=== PATIENT | male | born 1985 | race Two or more races ===

== ENCOUNTER 2019-12-14 10:40 | Emergency (ER) | payer SELFPAY ==
[2019-12-14 11:05] VITALS: BP 144/88; PULSE 70; RESP 16; TEMP 36.6; O2SAT 99
--- NOTE | 2019-12-14 11:13 | ED.WOUNDLAC ---
HPI - Wound/Laceration General Chief Complaint: Wound/Laceration Stated Complaint: injury top of head Time Seen by Provider: 12/14/19 11:13 Source: patient and RN notes reviewed History of Present Illness HPI narrative: Patient is a 34-year-old male that presents the urgent care with complaints of a laceration to the top of the head. Patient states that he bent over and cut the top of his head on a 10 please of metal. Patient denies any loss of consciousness or trauma. 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 Patient is not up-to-date on his tetanus shot. No other acute complaints. No other acute injuries. Patient aware of the plan of care. Related Data Home Medications Medication Instructions Recorded Confirmed No Home Medications 12/14/19 12/14/19 Allergies Allergy/AdvReac Type Severity Reaction Status Date / Time No Known Allergies Allergy Verified 12/14/19 11:04 Review of Systems Review of Systems: Narrative: CONSTITUTIONAL: Denies fever, chills, or sweats. EYES: Denies visual changes, redness, or discharge. ENT: Denies rhinorrhea, congestion, sore throat, or otalgia. CARDIOVASCULAR: Denies chest pain, palpitations, or edema. RESPIRATORY: Denies cough or dyspnea. GASTROINTESTINAL: Denies abdominal pain, nausea, vomiting, or diarrhea. GENITOURINARY: Denies dysuria or hematuria. SKIN: Reports of a laceration to the head MUSCULOSKELETAL: Denies back pain, joint pain, or myalgia. NEUROLOGIC: Denies headache, numbness, or weakness. All other systems reviewed are negative, except as documented in HPI. [facility] Social History Social History Gender identity (if verbalized by the patient): Male Comments At the time of my signature, I reviewed and agree with the nursing past medical, surgical, social, and family history. There is no relevant family history pertinent to the patient complaint. Exam Narrative: Exam Narrative: GENERAL: This is a well-nourished, well-developed patient, in no apparent distress. HEAD: normocephalic, atraumatic. EYES: PERRL. Sclera clear/white. Vision is grossly intact. EARS: External ears normal NOSE: External nose normal with no obvious nasal discharge THROAT: Mucous membranes moist NECK: Neck supple, non-tender without lymphadenopathy, masses or thyromegaly. SKIN: 4 cm superficial laceration to the right frontal lobe NEURO: awake, alert, and oriented to person, place and time. There were no obvious focal neurologic abnormalities. EXTREMITIES: No clubbing, cyanosis, or edema. Course Vital Signs Vital signs: Vital Signs Temperature 97.9 F 12/14/19 11:05 Pulse Rate 70 12/14/19 11:05 Respiratory Rate 16 12/14/19 11:05 Blood Pressure 144/88 H 12/14/19 11:05 Pulse Oximetry 99 12/14/19 11:05 Temperature 97.9 F 12/14/19 11:05 Pulse Rate 70 12/14/19 11:05 Respiratory Rate 16 12/14/19 11:05 Blood Pressure 144/88 H 12/14/19 11:05 Pulse Oximetry 99 12/14/19 11:05 Reviewed?patient is informed that they may have pre-hypertension or hypertension based on a blood pressure reading in the department. I recommend the patient call the primary care provider listed on their discharge instructions or a physician of their choice this week to arrange follow-up for further evaluation of possible pre-hypertension or hypertension. Procedures Laceration Laceration 1: Site: scalp Side (If applicable): right Size (cm): 4 Description: linear ====== Skin Level ====== Skin layer closed with: steri strips ====== Subcutaneous Layer ====== ====== Muscle Layer ====== ====== Tendon Layer ====== Dressin cm non-depth superficial laceration noted to the right frontal lobe. Steri-Strips placed after cleansing with [employer] and normal saline. Patient tolerated well. MDM - Wound/Laceration MDM Narrative Medical decision making na
[2019-12-14] MEDS: TETANUS,DIPHTHERIA,AC PERTUSSIS ADULT (0.5 ML) BOOSTRIX IM (11:22)
== END 2019-12-14 11:43 | disposition home or self-care (01) ==
PROVIDERS: Emergency Provider Nurse Practitioner Family
DX: S01.01XA Laceration without foreign body of scalp, initial encounter (principal); Z23 Encounter for immunization; R03.0 Elevated blood-pressure reading, without diagnosis of hypertension; W26.8XXA Contact with other sharp object(s), not elsewhere classified, initial encounter
CPT/HCPCS: 90471; 90715; 99202; G0463

== ENCOUNTER 2025-05-11 09:06 | Observation (INO) | payer BC, SELFPAY ==
[2025-05-11] VITALS (11 sets, daily range): BP systolic 117–137; BP diastolic 64–84; PULSE 80–91; RESP 12–18; TEMP 36.6–36.8; O2SAT 99–100; BMI 28.8
--- NOTE | ~2025-05-11 | US_ITS ---
EXAMINATION: US right upper quadrant DATE: 05/13/2025 08:58 INDICATION: Elevated liver enzymes TECHNIQUE: Multiple grayscale and Doppler ultrasound images of the abdomen were obtained. COMPARISON: None FINDINGS: The pancreatic body is normal in appearance. The pancreatic head and tail are not clearly visualized. Visualized proximal inferior vena cava is normal. Liver has normal echogenicity and contour, with a smooth surface. No liver lesion identified. No intrahepatic biliary duct dilation suspected. Portal venous flow was seen in the hepatopetal, normal direction and has normal Doppler waveform. The gallbladder is normal in appearance. Small amount of hypoechoic nonshadowing sludge layering dependently in the gallbladder. No cholelithiasis. The common bile duct measures 4-5 mm, which is normal. Sonographic Mcgraw sign was reported as negative by the groundwater programs director.Visualized portions of the right kidney de monstrates normal contour and echogenicity with no hydronephrosis. IMPRESSION: 1. Gallbladder sludge without cholelithiasis. Otherwise normal right upper quadrant ultrasound. Reviewed, dictated and finalized at location A. IMPRESSION: 1. Gallbladder sludge without cholelithiasis. Otherwise normal right upper quad rant ultrasound.
--- OUTSIDE RECORDS SUMMARY | 2025-05-11 09:34 | XMS_ITS | Clinical Summary ---
Author Organization [facility] Address [address] [place] [address] Care Team Providers Care Leather Finisher Name Role Phone Zeb Holloway MD Primary Care Provider [phone] Source Comments [facility],non-owned Affiliates and Associated Physician Practices is amultiple site organization consisting of ambulatory clinics and hospital sitesin [place], [place], [place] and [place]. This disclosure is being madepursuant to the Care Everywhere program and may not contain all information available regarding this patient. Last updated 18.[facility] Allergies No known active allergies Medications * Be aware that medications may not be up to date on this document. Alwaysverify current medications with the patient. No known medications Active Problems Problem Noted Date Diagnosed Date Overweight 11/04/2020 Immunizations Immunization Administration Dates Next Due Covid Pfizer primary monovalent 12+ yr 0.3mL Pur ple cap 12/12/2020 Family History Medical History Relation Name Comments None Known Father Diabetes - Type 2 Mother Relation Name Status Comments Father Alive Mother Alive Social History Tobacco Use Types Packs/Day Years Used Date Smoking Tobacco: Never Smokeless Tobacco: Never Alcohol Use Standard Drinks/Week Comments Never 0 (1 standard drink = 0.6 oz pur e alcohol) AUDIT-C Answer Date Recorded Q1: How often do you have a drink containing alc ohol? 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 Gender Identity Not on file Sexual Orientation Not on file Last Filed Vital Signs Vital Sign Reading Time Taken Comments Blood Pressure 116/64 11/04/2020 2:12 PM CDT Pulse 53 11/04/2020 2:12 PM CDT Temperature 36 C (96.8 F) 11/04/2020 2:12 PM CDT Respiratory Rate - - Oxygen Saturation 97% 11/04/2020 2:12 PM CDT Inhaled Oxygen Concentration - - Weight 86.2 kg (190 lb) 11/04/2020 2:12 PM CDT Height 175.3 cm (5' 9) 11/04/2020 2:12 PM CDT Body Mass Index 28.06 11/04/2020 2:12 PM CDT Plan of Treatment Health Maintenance Due Date Last Done Comments DTAP/TDAP/TD VACCINES (1 - Tdap) 2005 HEPATITIS B VACCINE (1 of 3 - 19+ 3-dose series) 2005 HPV VACCINE (1 - 3-dose SCDM series) 2013 DEPRESSION SCREENING 08/12/2024 COVID-19 VACCINE (3 - 2024-2 6 season) 2025 01/02/2021, 12/12/2020 INFLUENZA VACCINE (#1) 2025 ZOSTER VACCINE (1 of 2) 01/27/2036 HEPATITIS C SCREENING Completed 11/04/2020 HIV SCREENING Completed 11/04/2020 HIB VACCINE Aged Out No longer eligi ble based on patient's age to complete this topic MENINGOCOCCAL (Group B) VACCINE SHARED DECISION-MAKING Aged Out No longer eligible based on patient's age to complete this topic MENINGOCOCCAL GROUPS A/C/Y/W VACCINE Aged Out No longer eligible b ased on patient's age to complete this topic PNEUMOCOCCAL VACCINE Aged Out No long er eligible based on patient's age to complete this topic Procedures Procedure Name Priority Date/Time Associated Diagnosis Comments HEPATITIS C ANTIBODY W RFLX PCR Routine 11/04/2020 3:19 PM CDT Testicular pain, left Routine screening for STI (sexually transmitted infection) Encounter for HCV screening test for low risk patient HIV-1 HIV-2 ANTIBODY + HIV P24 AG PANEL Routine 11/04/2020 3:19 PM CDT Testicular pain, left Routine screening for STI (sexually transmitted infection) Encounter for screening for HIV from Last 3 Months or Most Recently Relevant to Health Maintenance Results * HEPATITIS C ANTIBODY W RFLX PCR (11/04/2020 3:19 PM CDT) Pathologist [facility] Hepatitis C Antibody <0.1 0.0 - 0.9 s/co ratio [facility] ACCOUNT BILL Blood BLOOD SPECIMEN / Unknown 11/04/2020 3:19 PM CDT 11/04/2020 Narrative Resulting Agency Comment Lab Testing performed at: [facility] [address] [facility] [id number] [place] Zeb Holloway MD LAB - CHEMISTRY ORDERABLES F inal Result Performing Organization Address City/[facility] de Phone Number [facility] ACCOUNT BILL [address] [place] [address] * HIV-1 HIV-2 ANTIBODY + HIV P24 AG PANEL (11/04/2020 3:19 PM CDT) Pathologist [facility] HIV Screen 4th Generation w Reflex Non Reactive Non Reactive [facility] ACCOUNT BILL Blood BLOOD SPECIMEN / Unknown 11/04/2020 3:19 PM CDT 11/04/2020 Narrative Resulting Agency Comment Lab Testing performed at: [facility] [facility] [address] [facility] [facility] [phone] [place] Zeb Holloway MD LAB - CHEMISTRY ORDERABLES F inal Result Performing Organization Address City/[facility]/ZIP Co de Phone Number [facility] ACCOUNT BILL [address] [place] [address] from Last 3 Months or Most Recently Relevant to Health Maintenance Insurance [facility] Care Teams Leather Finisher Relationship Specialty Start Date End Date Zeb Holloway MD [address] [place] [address] PCP - General Family Medicine 11/04/20
[2025-05-11 09:35] LABS: Hematocrit 22.9 % (42.0-52.0); Immature Granulocyte Percent A 0.6 % (0-0.5); Lymphocytes Absolute Auto 1.80 K/mm3 (0.9-3.2); Mean Corpuscular HGB Conc 24.0 g/dl (32-36); Mean Corpuscular Hemoglobin 14.2 pg (26-34); Mean Corpuscular Volume 59.3 fl (80-100); Nucleated Red Blood Cells Absolute Auto 0.000 K/mm3 (0.0-0.012); Nucleated Red Blood Cells Perc 0.0 % (0.0-0.2); Platelet Count Result 527 k/mm3 (150-375); Red Blood Count 3.86 M/mm3 (4.6-6.20); White Blood Count 5.4 K/mm3 (4.5-10.0)
--- NOTE | 2025-05-11 09:39 | ED_ITS ---
HPI - Recheck/Abnormal Lab/Rx General Chief Complaint: Recheck/Abnormal Lab/Rx <Emely Smith APRN - Last Filed: 05/11/25 12:49> Stated Complaint: low hemoglobin <Emely Smith APRN - Last Filed: 05/11/25 12:49> Time Seen by Provider: 05/11/25 09:11 <Emely Smith APRN - Last Filed: 05/11/25 12:49> History of Present Illness HPI narrative: Patient is a 40-year-old male who presents to the ER after his primary care provider referred him due to low hemoglobin. He reports he went to see his doctor last week because his skin was yellow. Patient reports his doctor ordered some blood work. His doctor called in this morning and advised him to go into the ER because some of his blood work results were low. Patient denies any recent fevers, chest pain, back pain, swollen lymph nodes, urinary symptoms, or swollen extremities. He reports he had asthma but the symptoms have resolved. Patient denies any other relevant medical history. <Emely Smtih APRN - Last Filed: 05/11/25 12:49> Related Data Home Medications: Home Medications ?Medication ?Instructions ?Recorded ?Confirmed ?Last Taken ?Type albuterol 90 mcg/actuation aerosol 90 mcg inhalation . Q4HR PRN 05/11/25 05/11/25 Unknown History inhaler wheezing/difficulty breathin g multivitamin (Daily Multi-Vitamin 1 tablet PO DAILY 05/11/25 05/10/25 History tablet) <Emely Smith APRN - Last Filed: 05/11/25 12:49> Allergies/Adverse Reactions: Allergies Allergy/AdvReac Type Severity Reaction Status Date / Time aspirin AdvReac Severe Difficulty Verified 05/11/25 13:02 Breathing Cats Allergy Intermediate Rash Uncoded 05/10/25 08:55 <Emely Smith APRN - Last Filed: 05/11/25 12:49> Review of Systems 2 Review of Systems: All systems reviewed & are unremarkable except as noted in HPI and below <Emely Smith APRN - Last Filed: 05/11/25 12:49> [facility] Past Medical History Medical History: Medical History (Updated 05/11/25 @ 15:26 by Raghavendra Butler MD) Pre-syncope Thrombocytosis <Emely Smith APRN - Last Filed: 05/11/25 12:49> Social History Social History: Social History Smoking status: Never smoker Alcohol intake: never Substance use: never Do You Feel Safe in your Home?: Yes Lack of Transportation: No Lack of Food: Never True Current Housing: I Have Housing Concerned About Future Housing: No Difficulty Paying Gas/Electric Bills: No Difficulty Paying for Meds: No Currently Unemployed: No Education: Decline to Answer Difficulty w/ Childcare or Family Care: No Gender identity (if verbalized by the patient): Male Spiritual care concerns: No <Emely Smith APRN - Last Filed: 05/11/25 12:49> Exam 2 Narrative: GENERAL: Well appearing, well-nourished, non-toxic, in no acute distress. HEAD: Normocephalic, atraumatic. PERRLA- non ichteric NECK: Supple. No adenopathy, no masses. RESPIRATORY: Airway patent, respirations nonlabored. Clear to auscultation bilaterally, no rales, rhonchi, wheezing. CARDIOVASCULAR: Regular rate and rhythm without murmurs, rubs, or gallops. Peripheral pulses 2+ and equal bilaterally. ABDOMINAL: Soft, nontender, nondistended, no hepatosplenomegaly. Normoactive BS. MUSCULOSKELETAL: Moves all extremities. Strength/ROM intact without gross deformities. SKIN: Warm, dry, pallor. No rashes. NEURO: A&O X3. Speech clear. Cranial nerves II-XII intact. No ataxic movements. PSYCHIATRIC: Appropriate mood and affect. Normal interaction. GI/: no palpable hemorrhoids, negative hemoccult <Emely Smith APRN - Last Filed: 05/11/25 12:49> Course DIRECTOR LEARNING/PA Physician Supervision This visit was performed by both a physician and an APC. I performed all aspects of the MDM as documented. <Jonas Barnes MD - Last Filed: 05/11/25 17:35> Vital Signs Vital signs: Vital Signs Temperature 98.1 F 05/11/25 09:12 Pulse Rate 85 05/11/25 09:12 Respiratory Rate 14 05/11/25 09:12 Blood Pressure 134/84 05/11/25 09:12 Pulse Oximetry 100 05/11/25 09:12 Oxygen Delivery Room Air 05/11/25 09:12 Temperature 98 F 05/11/25 14:55 Pulse Rate 80 05/11/25 14:55 Respiratory Rate 16 05/11/25 14:55 Blood Pressure 124/65 05/11/25 14:55 Pulse Oximetry 100 05/11/25 14:55 Oxygen Delivery Room Air 05/11/25 14:06 <Emely Smith, LEAD DATABASE ADMINISTRATOR - Last Filed: 05/11/25 12:49> Vital Signs Temperature 98.1 F 05/11/25 09:12 Pulse Rate 85 05/11/25 09:12 Respiratory Rate 14 05/11/25 09:12 Blood Pressure 134/84 05/11/25 09:12 Pulse Oximetry 100 05/11/25 09:12 Oxygen Delivery Room Air 05/11/25 09:12 Temperature 98 F 05/11/25 14:55 Pulse Rate 80 05/11/25 14:55 Respiratory Rate 16 05/11/25 14:55 Blood Pressure 124/65 05/11/25 14:55 Pulse Oximetry 100 05/11/25 14:55 Oxygen Delivery Room Air 05/11/25 14:06 <Jonas Barnes MD - Last Filed: 05/11/25 17:35> MDM - Recheck/Abnormal Lab/Rx MDM Narrative Medical decision making narrative: Patient is a 40-year-old male who presents to the ER after his primary care provider referred him due to low hemoglobin. He reports he went to see his doctor last week because his skin was yellow. Patient reports his doctor ordered some blood work. His doctor called in this morning and advised him to go into the ER because some of his blood work results were low. Patient denies any recent fevers, chest pain, back pain, swollen lymph nodes, urinary symptoms, or swollen extremities. He reports he had asthma but the symptoms have resolved. Patient denies any other relevant medical history. Labs Ordered: CBC, CMP, type and screen, iron TIBC, COVID/flu/RSV, UA, PTT, INR Imaging Ordered:CBC, CMP, Iron and TIBC, PTT, INR, Type and Screen, COVID/flu/RSV, UA Medications Ordered: Protonix 40 mg IV, packed red blood cells Results: Patient's Hemoccult was negative. Diagnosis: low hemoglobin Consults: 1115- Spoke with Dr. Pichardo, hospitalist, who was in agreement with plan for admission. He will be admitted to the med/surg unit. Dr. Pichardo requests GI be consulted. 1155- Spoke with GI, Dr. Carlin, who is aware of the patient and will consult on him. CRITICAL CARE ADDENDUM: Indication: low hemoglobin, requiring blood transfusion Time type: intermittent I provided a total of 55 minutes of critical care excluding separately billable procedures. This includes time w/ initial bedside evaluation, reviewing old records, review of testing done while under my care, discussion w/ the family, nurses, data power consultant and guiding the patient?s care while in the emergency department. Approximate time distribution: 15 minutes ? Initial evaluation, d/w involved parties, attempting to gather old records. 10 minutes ? Documenting medical record 10 minutes ? Review of results (EKGs, labs, imaging) 10 minutes ? Serial repeat bedside evaluation 10 minutes ? Discussing case with multiple providers Please see main chart for details. Excludes separately billable procedures. MDM: Results of imaging and lab work shared with patient and his family. It was advised patient be admitted to the hospital for further evaluation and treatment. Patient and his family verbalized understanding and are in agreement with plan. <Emely Smith, LEAD DATABASE ADMINISTRATOR - Last Filed: 05/11/25 12:49> Patient is a 40-year-old male who presents to the ER after his primary care provider referred him due to low hemoglobin. He reports he went to see his doctor last week because his skin was yellow. Patient reports his doctor ordered some blood work. His doctor called in this morning and advised him to go into the ER because some of his blood work results were low. Patient denies any recent fevers, chest pain, back pain, swollen lymph nodes, urinary symptoms, or swollen extremities. He reports he had asthma but the symptoms have resolved. Patient denies any other relevant medical history. Labs Ordered: CBC, CMP, type and screen, iron TIBC, COVID/flu/RSV, UA, PTT, INR Imaging Ordered:CBC, CMP, Iron and TIBC, PTT, INR, Type and Screen, COVID/flu/RSV, UA Medications Ordered: Protonix 40 mg IV, packed red blood cells Results: Patient's Hemoccult was negative. Diagnosis: low hemoglobin Consults: 1115- Spoke with Dr. Pichardo, hospitalist, who was in agreement with plan for admission. He will be admitted to the med/surg unit. Dr. Pichardo requests GI be consulted. 1155- Spoke with GI, Dr. Carlin, who is aware of the patient and will consult on him. CRITICAL CARE ADDENDUM: Indication: low hemoglobin, requiring blood transfusion Time type: intermittent I provided a total of 55 minutes of critical care excluding separately billable procedures. This includes time w/ initial bedside evaluation, reviewing old records, review of testing done while under my care, discussion w/ the family, nurses, data power consultant and guiding the patient?s care while in the emergency department. Approximate time distribution: 15 minutes ? Initial evaluation, d/w involved parties, attempting to gather old records. 10 minutes ? Documenting medical record 10 minutes ? Review of results (EKGs, labs, imaging) 10 minutes ? Serial repeat bedside evaluation 10 minutes ? Discussing case with multiple providers Please see main chart for details. Excludes separately billable procedures. MDM: Results of imaging and lab work shared with patient and his family. It was advised patient be admitted to the hospital for further evaluation and treatment. Patient and his family verbalized understanding and are in agreement with plan. This visit was performed by both a physician and an APC. I performed all aspects of the MDM as documented. <Jonas Barnes MD - Last Filed: 05/11/25 17:35> Differential Diagnosis Differential diagnosis: Likely other (Lower GI bleed, hemorrhoids, iron deficiency anemia) <Emely Smith APRN - Last Filed: 05/11/25 12:49> Lab Data Attestation: I reviewed the patient's lab results. <Emely Smith APRN - Last Filed: 05/11/25 12:49> Result diagrams: 05/11/25 17:18 05/11/25 09:28 <Emely Smith APRN - Last Filed: 05/11/25 12:49> Labs: Lab Results 05/11/25 05/11/25 05/11/25 Range/Units 09:28 09:52 10:55 WBC 5.4 (4.5-10.0) K/mm3 RBC 3.86 L (4.6-6.20) M/mm3 Hgb 5.5 L* (14.0-18.0) g/dL Hct 22.9 L (42.0-52.0) % MCV 59.3 L (80-100) fl MCH 14.2 L (26-34) pg MCHC 24.0 L (32-36) g/dl RDW 23.2 H (11.5-14.5) % Plt Count 527 H (150-375) k/mm3 MPV 9.4 (7.4-10.4) fl Immature Gran % (Auto) 0.6 H (0-0.5) % Neut % (Auto) 57.6 (45.5-73.1) % Lymph % (Auto) 33.3 (18.3-44.2) % Dickenson % (Auto) 4.8 (2.6-8.5) % Eos % (Auto) 3.0 (0-4.4) % Baso % (Auto) 0.7 (0.2-1.2) % Lymph # (Auto) 1.80 (0.9-3.2) K/mm3 Dickenson # (Auto) 0.3 (0.1-0.6) K/mm3 Eos # (Auto) 0.2 (0-0.3) K/mm3 Baso # (Auto) 0.0 (0.0-0.1) K/mm3 Abs Immat Gran (auto) 0.03 (0.00-0.031) K/mm3 Absolute Neuts (auto) 3.1 (1.3-6.7) K/mm3 Absolute Nucleated RBC 0.000 (0.0-0.012) K/mm3 Band Neutrophils % Not Reportable Nucleated RBC % 0.0 (0.0-0.2) % Platelet Estimate Increased (Adequate) Large Platelets Present Hypochromasia 1+ Anisocytosis 2+ Target Cells 1+ Tear Drop Cells 1+ Ovalocytes 1+ Schistocytes 1+ PT 14.1 (11.1-14.7) Seconds INR 1.1 APTT 20.1 L (22.3-36.8) Seconds Sodium 136 L (137-145) mmol/L Potassium 4.4 (3.4-5.0) mmol/L Chloride 102 (98-107) mmol/L Carbon Dioxide 24 (22-30) mmol/L Anion Gap 10 (4-12) mmol/L BUN 11 (9-20) mg/dL Creatinine 0.82 (0.7-1.3) mg/dL Estim Creat Clear Calc 111 ml/min Estimated GFR > 60 (59 - ) Glucose 106 (65-110) mg/dL Calcium 8.9 (8.4-10.2) mg/dL Iron 18 L (49-181) ug/dL TIBC 542 H (265-497) ug/dL % Saturation 3 L (20-50) % Total Bilirubin 0.5 (0.2-1.3) mg/dL AST 53 (17-59) U/L ALT 89 H (6-50) U/L Alkaline Phosphatase 89 (38-126) U/L Total Protein 8.0 (6.3-8.2) g/dL Albumin 4.3 (3.5-5.1) g/dL Urine Color Yellow (Yellow) Urine Appearance Cloudy H (Clear) Urine pH 7.0 (5.0-9.0) Ur Specific [place] 1.018 (1.001-1.035) Urine Protein Negative (Negative) mg/dL Urine Glucose (UA) Negative (Negative) mg/dL Urine Ketones Negative (Negative) mg/dL Ur Blood (Man) Negative (Negative) Urine Nitrate Negative (Negative) Urine Bilirubin Negative (Negative) Urine Urobilinogen 0.2 (<2.0) mg/dL Leukocyte Esterase Rfl Negative (Negative) JONATHAN/UL Urine RBC 0-2 (0-2) /hpf Urine WBC 0-5 (0-3) /hpf Ur Squamous Epith Cells None seen (Few) /hpf Urine Bacteria None seen /hpf Urine Casts 0-2 Influenza A (RT-PCR) Negative (Negative) Influenza B (RT-PCR) Negative (Negative) RSV (RT-PCR) Negative (Negative) SARS-CoV-2 RNA (RT-PCR) Negative (Negative) Blood Type O Positive Antibody Screen Negative Crossmatch See Detail <Emely Smith, LEAD DATABASE ADMINISTRATOR - Last Filed: 05/11/25 12:49> Lab Results 05/11/25 05/11/25 05/11/25 Range/Units 09:28 09:52 10:55 WBC 5.4 (4.5-10.0) K/mm3 RBC 3.86 L (4.6-6.20) M/mm3 Hgb 5.5 L* (14.0-18.0) g/dL Hct 22.9 L (42.0-52.0) % MCV 59.3 L (80-100) fl MCH 14.2 L (26-34) pg MCHC 24.0 L (32-36) g/dl RDW 23.2 H (11.5-14.5) % Plt Count 527 H (150-375) k/mm3 MPV 9.4 (7.4-10.4) fl Immature Gran % (Auto) 0.6 H (0-0.5) % Neut % (Auto) 57.6 (45.5-73.1) % Lymph % (Auto) 33.3 (18.3-44.2) % Dickenson % (Auto) 4.8 (2.6-8.5) % Eos % (Auto) 3.0 (0-4.4) % Baso % (Auto) 0.7 (0.2-1.2) % Lymph # (Auto) 1.80 (0.9-3.2) K/mm3 Dickenson # (Auto) 0.3 (0.1-0.6) K/mm3 Eos # (Auto) 0.2 (0-0.3) K/mm3 Baso # (Auto) 0.0 (0.0-0.1) K/mm3 Abs Immat Gran (auto) 0.03 (0.00-0.031) K/mm3 Absolute Neuts (auto) 3.1 (1.3-6.7) K/mm3 Absolute Nucleated RBC 0.000 (0.0-0.012) K/mm3 Band Neutrophils % Not Reportable Nucleated RBC % 0.0 (0.0-0.2) % Platelet Estimate Increased (Adequate) Large Platelets Present Hypochromasia 1+ Anisocytosis 2+ Target Cells 1+ Tear Drop Cells 1+ Ovalocytes 1+ Schistocytes 1+ PT 14.1 (11.1-14.7) Seconds INR 1.1 APTT 20.1 L (22.3-36.8) Seconds Sodium 136 L (137-145) mmol/L Potassium 4.4 (3.4-5.0) mmol/L Chloride 102 (98-107) mmol/L Carbon Dioxide 24 (22-30) mmol/L Anion Gap 10 (4-12) mmol/L BUN 11 (9-20) mg/dL Creatinine 0.82 (0.7-1.3) mg/dL Estim Creat Clear Calc 111 ml/min Estimated GFR > 60 (59 - ) Glucose 106 (65-110) mg/dL Calcium 8.9 (8.4-10.2) mg/dL Iron 18 L (49-181) ug/dL TIBC 542 H (265-497) ug/dL % Saturation 3 L (20-50) % Total Bilirubin 0.5 (0.2-1.3) mg/dL AST 53 (17-59) U/L ALT 89 H (6-50) U/L Alkaline Phosphatase 89 (38-126) U/L Total Protein 8.0 (6.3-8.2) g/dL Albumin 4.3 (3.5-5.1) g/dL Urine Color Yellow (Yellow) Urine Appearance Cloudy H (Clear) Urine pH 7.0 (5.0-9.0) Ur Specific [place] 1.018 (1.001-1.035) Urine Protein Negative (Negative) mg/dL Urine Glucose (UA) Negative (Negative) mg/dL Urine Ketones Negative (Negative) mg/dL Ur Blood (Man) Negative (Negative) Urine Nitrate Negative (Negative) Urine Bilirubin Negative (Negative) Urine Urobilinogen 0.2 (<2.0) mg/dL Leukocyte Esterase Rfl Negative (Negative) JONATHAN/UL Urine RBC 0-2 (0-2) /hpf Urine WBC 0-5 (0-3) /hpf Ur Squamous Epith Cells None seen (Few) /hpf Urine Bacteria None seen /hpf Urine Casts 0-2 Influenza A (RT-PCR) Negative (Negative) Influenza B (RT-PCR) Negative (Negative) RSV (RT-PCR) Negative (Negative) SARS-CoV-2 RNA (RT-PCR) Negative (Negative) Blood Type O Positive Antibody Screen Negative Crossmatch See Detail <Jonas Barnes MD - Last Filed: 05/11/25 17:35> Critical Care Time Critical Care Time Critical Care Time: Yes <Emely Smith APRN - Last Filed: 05/11/25 12:49> Total Critical Care Time: 55 <Emely Smith APRN - Last Filed: 05/11/25 12:49> Discharge Plan Discharge Clinical Impression: Hemoglobin low, Fatigue <Emely Smith APRN - Last Filed: 05/11/25 12:49> Patient Disposition: Still a Patient <Emely Smith APRN - Last Filed: 05/11/25 12:49> Condition: Stable <Emely Smith APRN - Last Filed: 05/11/25 12:49>
[2025-05-11 09:45] LABS: Alanine Aminotransferase 89 U/L (6-50); Albumin Level 4.3 g/dL (3.5-5.1); Alkaline Phosphatase 89 U/L (38-126); Anion Gap 10 mmol/L (4-12); Aspartate Amino Transferase 53 U/L (17-59); Bilirubin,Total 0.5 mg/dL (0.2-1.3); Blood Urea Nitrogen 11 mg/dL (9-20); Calcium 8.9 mg/dL (8.4-10.2); Carbon Dioxide 24 mmol/L (22-30); Chloride 102 mmol/L (98-107); Estimated CRCL calculation 111 ml/min; Estimated Glomerular Filt Rate > 60; Glucose 106 mg/dL (65-110); Potassium 4.4 mmol/L (3.4-5.0); Sodium 136 mmol/L (137-145); Total Protein 8.0 g/dL (6.3-8.2)
[2025-05-11 09:46] LABS: Hemoglobin 5.5 g/dL (14.0-18.0)
[2025-05-11 09:56] LABS: Iron 18 ug/dL (49-181)
[2025-05-11 10:06] LABS: Percent Iron Saturation 3 % (20-50)
[2025-05-11 10:13] LABS: INR 1.1; Prothrombin Time 14.1 Seconds (11.1-14.7)
[2025-05-11 10:14] LABS: Partial Thromboplastin Time 20.1 Seconds (22.3-36.8)
[2025-05-11 10:21] LABS: Anisocytosis 2+; Hypochromasia 1+; Ovalocytes 1+; Schistocytes 1+; Target Cells 1+; Tear Drop Cells 1+
--- OUTSIDE RECORDS SUMMARY | 2025-05-11 10:21 | XMS_ITS | Clinical Summary ---
Author Organization [facility] [employer] Address [address] [place] [address] Care Team Providers Care Brush Maker Name Role Phone Zeb Holloway MD Primary Care Provider [phone] Source Comments [facility],non-owned Affiliates and Associated Physician Practices is amultiple site organization consisting of ambulatory clinics and hospital sitesin [place], [place] and [place]. This disclosure is being madepursuant to the Care Everywhere program and may not contain all information available regarding this patient. Last updated 18.[facility] [employer] Allergies No known active allergies Medications * [...] on file Legal Sex Male 9:54 AM [employer] Gender Identity Not on file Sexual Orientation [...] RFLX PCR (11/04/2020 3:19 PM CDT) Pathologist [facility] Hepatitis C Antibody <0.1 0.0 - 0.9 s/co ratio [facility] ACCOUNT BILL Blood BLOOD SPECIMEN / Unknown 11/04/2020 3:19 PM CDT 11/04/2020 Narrative Resulting Agency Comment Lab Testing performed at: [facility] [address] [id number] us Zeb Holloway MD LAB - CHEMISTRY ORDERABLES F inal Result Performing Organization Address City/[facility] de Phone Number [facility] ACCOUNT BILL [address] [place] [address] * HIV-1 HIV-2 ANTIBODY + HIV P24 AG PANEL (11/04/2020 3:19 PM CDT) Pathologist [facility] HIV Screen 4th Generation w Reflex Non Reactive Non Reactive [facility] ACCOUNT BILL Blood BLOOD SPECIMEN / Unknown 11/04/2020 3:19 PM CDT 11/04/2020 Narrative Resulting Agency Comment Lab Testing performed at: [facility] [address] [id number] us Zeb Holloway MD LAB - CHEMISTRY ORDERABLES F inal Result Performing Organization Address City/[facility]/ZIP Co de Phone Number [facility] ACCOUNT BILL [address] [place] [address] from Last 3 Months or Most Recently Relevant to Health Maintenance Insurance [facility] Care Teams Brush Maker Relationship Specialty Start Date End Date Zeb Holloway MD [address] [place] [address] PCP - General Family Medicine 11/04/20
[2025-05-11 10:33] LABS: Influenza A QL RT-PCR Negative (Negative); Influenza B QL RT-PCR Negative (Negative); RSV RNA, RT-PCR Negative (Negative); SARS-CoV-2 RNA PCR Negative (Negative)
[2025-05-11 11:06] LABS: Add Urine Microscopic? YES; Appearance Urine Cloudy (Clear); Glucose Urine UA Negative (Negative); Leukocyte Esterase Ur Negative LEU/UL (Negative); Nitrate Urine Negative (Negative); Non Pathogenic Casts 0-2; Specific Grav Ur 1.018 (1.001-1.035)
[2025-05-11] MEDS: SODIUM CHLORIDE 0.9% IV 250 ML 30 ML IV CONT (11:08)
[2025-05-11] MEDS: TUBING, BLOOD SET 1 EACH XX (11:09)
[2025-05-11] MEDS: PANTOPRAZOLE SODIUM IV 40 MG VIAL IV PUSH ×2 (12:05→20:10)
[2025-05-11 12:11] LABS: Hematocrit 26.6 % (42.0-52.0); Hemoglobin 6.6 g/dL (14.0-18.0)
--- NOTE | 2025-05-11 12:22 | P.HP_ITS ---
H&P: HPI History of Present Illness Date/Time: 05/11/25 12:22 Chief Complaint: Abnormal Labs Narrative: 40-year-old patient previously healthy presents the hospital for abnormal labs. He recently went to his primary care provider are due to his skin turning yellow and discolored urine. He states that his primary care provider told to go to the emergency room due to his blood counts being low. Patient did state that he was ill about a week ago intake about 2 tabs at Tylenol. Since then the illness has resolved. Patient denies pain, nausea vomiting, fever chills, shortness of breath. Lab work in the ED shows hemoglobin of 5.6, platelets of 527, sodium 136, iron of 18 TV IC 542, 3% saturation, ALT 89, UA negative for infection, influenza A/B RSV and COVID negative. Occult stool guaiac negative. GI has been consulted. Patient was given 1 unit RBCs in the emergency room and responded appropriately hemoglobin is now 6.6. Review of Systems Review of Systems: 12 systems were reviewed and are negativ e except for as per HPI. [facility] Past Medical History Medical History (Updated 05/11/25 @ 15:26 by Raghavendra Butler MD) Pre-syncope Thrombocytosis Social History Social History Smoking status: Never smoker Alcohol intake: never Substance use: never Do You Feel Safe in your Home?: Yes Lack of Transportation: No Lack of Food: Never True Current Housing: I Have Housing Concerned About Future Housing: No Difficulty Paying Gas/Electric Bills: No Difficulty Paying for Meds: No Currently Unemployed: No Education: Decline to Answer Difficulty w/ Childcare or Family Care: No Gender identity (if verbalized by the patient): Male Spiritual care concerns: No Meds Home Medications and Allergies Home Medications ?Medication ?Instructions ?Recorded ?Confirmed ?Type albuterol 90 mcg/actuation aerosol 90 mcg inhalation . Q4HR PRN 05/11/25 05/11/25 History inhaler wheezing/difficulty breathin g multivitamin (Daily Multi-Vitamin 1 tablet PO DAILY 05/11/25 History tablet) Allergies Allergy/AdvReac Type Severity Reaction Status Date / Time aspirin AdvReac Severe Difficulty Verified 05/11/25 13:02 Breathing Cats Allergy Intermediate Rash Uncoded 05/10/25 08:55 Vital Signs Vital Signs - 24 hr 05/11/25 09:12 05/11/25 10:50 05/11/25 11:02 Temperature 98.1 F 98.0 F Pulse Rate 85 91 89 Respiratory Rate 14 18 15 Blood Pressure 134/84 131/72 117/72 Pulse Oximetry 100 100 100 Oxygen Delivery Room Air 05/11/25 11:19 05/11/25 12:03 Temperature 98.3 F 98.0 F Pulse Rate 81 81 Respiratory Rate 13 12 Blood Pressure 118/71 121/71 Pulse Oximetry 100 99 Oxygen Delivery Exam Narrative: General: well appearing, appears stated age. HEENT: normocephalic, atraumatic. Mucous membranes moist. EOMI, PERRLA, no conjunctival injection. Neck supple without JVD, lymphadenopathy, or bruit. Respiratory: clear to ascultation bilaterally. No rales/rhonic/wheezes. Cardiovascular: Regular rate and rhythm, normal S1-S2 upon ascultation. No murmurs, rubs, or clicks. PMI is nondisplaced, capillary refill less than 3 second. Abdomen: Soft, round, no pulsatile masses, nondistended and nontender. No rebound, no guarding. No CVA tenderness, no hepatosplenomegaly. Bowel sounds present to all four quadrants. No high pitch or tinkling sounds, resonant to percussion. Extremities: No cyanosis, clubbing, or edema present. Pulses are palpable 2/2. Active ROM to all four extremities. Neuro: Alert and orientated x 4. PERRLA. Cranial nerves 2-12 intact without focal deficit. Skin: Warm, dry, and intact, without rash, erythema, or lesion. Psych: pleasant, cooperative, normal speech, normal affect, no hallucinations, no dysarthia H&P: Results Labs Labs: Short CBC 05/11/25 05/11/25 Range/Units 09:28 11:54 WBC 5.4 (4.5-10.0) K/mm3 Hgb 5.5 L* 6.6 L* (14.0-18.0) g/dL Hct 22.9 L 26.6 L (42.0-52.0) % Plt Count 527 H (150-375) k/mm3 [facility] 05/11/25 09:28 Sodium 136 L Potassium 4.4 Chloride 102 Carbon Dioxide 24 BUN 11 Creatinine 0.82 Glucose 106 Calcium 8.9 Liver Function 05/11/25 Range/Units 09:28 Total Bilirubin 0.5 (0.2-1.3) mg/dL AST 53 (17-59) U/L ALT 89 H (6-50) U/L Alkaline Phosphatase 89 (38-126) U/L Albumin 4.3 (3.5-5.1) g/dL Urine 05/11/25 Range/Units 10:55 Urine Color Yellow (Yellow) Urine Appearance Cloudy H (Clear) Urine pH 7.0 (5.0-9.0) Ur Specific [place] 1.018 (1.001-1.035) Urine Protein Negative (Negative) mg/dL Urine Glucose (UA) Negative (Negative) mg/dL Assessment and Plan Assessment and plan (1) Anemia: Code(s): D64.9 - Anemia, unspecified Status: Acute Assessment and Plan: Hemoglobin on admission 5.6 GI consulted and Hematology consulted NPO midnight, okay for clear liquids now 1 unit of RBCs transfused in the emergency room, repeat hemoglobin 6.6 Second unit of RBCs ordered Had H&H q.6 Transfuse for hemoglobin less than 7 No signs of acute bleeding Ferritin, haptoglobin, B12 and folic acid pending No signs of acute bleeding Hemoglobin has responded appropriately to transfusions (2) Yellow skin: Code(s): R17 - Unspecified jaundice Status: Acute Assessment and Plan: With severe anemia and jaundice Hematology consulted Anemia workup pending Ferritin, direct Marely, haptoglobin, B12 and folic acid pending (3) Iron deficiency anemia: Code(s): D50.9 - Iron deficiency anemia, unspecified Status: Acute Assessment and Plan: Iron 18, TIBC 542, saturation 3% Total iron deficiency 2337 mg 300 mg of IV iron ordered for tonight and tomorrow (4) Elevated liver enzymes: Code(s): R74.8 - Abnormal levels of other serum enzymes Status: Acute Assessment and Plan: CMP in the morning (5) Fatigue: Code(s): R53.83 - Other fatigue Status: Acute Assessment and Plan: Likely due to acute anemia Quality VTE Prophylaxis VTE prophylaxis: mechanical ordered If No VTE Prophylaxis Answer both mechanical and pharmacologic: Reason no pharmacologic proph: medical contraindication Hospitalist MIPS Advance Care Plan I have confirmed that the patient's Advanced Care Plan is present, code status is documented, or surrogate decision maker is listed in patient medical record.: Yes Medication Reconciliation I have utilized all available resources to obtain, update and review the patients current medications (includes all prescriptions, OTC, herbals, cannabis, and nutritional supplements).: Yes
--- NOTE | 2025-05-11 12:50 | ADMGEN ---
This patient, Ny Sauceda, was admitted to [facility] S[facility] Room 315-02. Patient/family oriented to hospital policies and general routines including ID bracelet, bed and alarms, visiting hours, pain management, procedures, bathroom and other care routines, personal items, smoking policy, room service/diet, and visiting hours. Information on how to activate the Rapid Response Team has been discussed. Patient/Family are encouraged to report perceived risks to care and to ask questions if they do not understand what they are told or what they should do. 1u PRBCs tranfused in ED. Kylee notified by MAYRA, [employer]PER[employer] INTELLIGENCE CHIEF of second critical Hgb.
--- NOTE | 2025-05-11 15:23 | P.CONGI_ITS ---
Assessment and Plan Assessment and plan (1) Iron deficiency anemia: Code(s): D50.9 - Iron deficiency anemia, unspecified Status: Acute Assessment and Plan: we will proceed with egd and colonoscopy tomorrow, need to assess if pud, avm or even malignancy. He denies overt gib, never had scopes, no use of nsaid's transfuse to keep hgb>7 (2) Elevated liver enzymes: Code(s): R74.8 - Abnormal levels of other serum enzymes Status: Acute Assessment and Plan: noted elevated enzymes will get liver us (3) Thrombocytosis: Code(s): D75.839 - Thrombocytosis, unspecified Status: Acute Assessment and Plan: this is probably reactive from anemia (4) Pre-syncope: Code(s): R55 - Syncope and collapse Status: Acute Assessment and Plan: from symptomatic anemia GI Consult Note Consult date/time: 05/11/25 15:23 Reason for consult: symptomatic anemia HPI: Ny Sauceda is a 40 year old male with history of asthma and no other significant medical history, originally from [facility]. He says that last few months his noted change in color of skin, also last 2 weeks had episodes of near syncope where he would get lightheaded and feeling like passing out after changing position. He denies abdominal pain, overt gib, nausea or weight loss. Never had scopes, only time received local anesthesia when had dental work, he is not taking medications. Grandmother had colon cancer. Blood work hemoglobin of 5.6, platelets of 527, sodium 136, iron of 18 TV IC 542, 3% saturation, ALT 89, UA negative for infection, influenza A/B RSV and COVID negative. Occult stool guaiac negative. Review of Systems 2 Constitutional: Constitutional: Reports fatigue Eyes: Eyes: Denies blurry vision ENT: Reports Normal hearing present Cardiovascular: Cardiovascular: Reports lightheadedness Respiratory: Respiratory: Denies cough Gastrointestinal: Gastrointestinal: Denies melena and Denies hematochezia Genitourinary: Genitourinary: Denies dysuria Musculoskeletal: Musculoskeletal: Denies neck pain Integumentary/Breasts: Skin/Breast: Denies rash Neurologic: Denies Abnormal speech present Psychiatric: Psychiatric: Denies anxiety PMFSH Past Medical History Medical History (Updated 05/11/25 @ 15:26 by Raghavendra Butler MD) Pre-syncope Thrombocytosis Social History Social History Smoking status: Never smoker Alcohol intake: never Substance use: never Do You Feel Safe in your Home?: Yes Lack of Transportation: No Lack of Food: Never True Current Housing: I Have Housing Concerned About Future Housing: No Difficulty Paying Gas/Electric Bills: No Difficulty Paying for Meds: No Currently Unemployed: No Education: Decline to Answer Difficulty w/ Childcare or Family Care: No Gender identity (if verbalized by the patient): Male Spiritual care concerns: No Meds Home Medications and Allergies Home Medications ?Medication ?Instructions ?Recorded ?Confirmed ?Type albuterol 90 mcg/actuation aerosol 90 mcg inhalation . Q4HR PRN 05/11/25 05/11/25 History inhaler wheezing/difficulty breathin g multivitamin (Daily Multi-Vitamin 1 tablet PO DAILY 05/11/25 History tablet) Allergies Allergy/AdvReac Type Severity Reaction Status Date / Time aspirin AdvReac Severe Difficulty Verified 05/11/25 13:02 Breathing Cats Allergy Intermediate Rash Uncoded 05/10/25 08:55 Vital Signs Vital Signs - 24 hr 05/11/25 09:12 05/11/25 10:50 05/11/25 11:02 Temperature 98.1 F 98.0 F Pulse Rate 85 91 89 Respiratory Rate 14 18 15 Blood Pressure 134/84 131/72 117/72 Pulse Oximetry 100 100 100 Oxygen Delivery Room Air 05/11/25 11:19 05/11/25 12:03 05/11/25 13:40 Temperature 98.3 F 98.0 F 97.9 F Pulse Rate 81 81 80 Respiratory Rate 13 12 16 Blood Pressure 118/71 121/71 125/66 Pulse Oximetry 100 99 100 Oxygen Delivery 05/11/25 13:55 05/11/25 14:06 05/11/25 14:55 Temperature 98.2 F 98 F Pulse Rate 80 80 Respiratory Rate 16 16 Blood Pressure 126/64 124/65 Pulse Oximetry 100 100 Oxygen Delivery Room Air Exam 2 Const: General: comfortable and no acute distress HENMT: Face/Nose/Sinus: Normal nares present Eyes: General: appearance normal, both eyes and all related structures Neck: Neck: no JVD Resp: Auscultation: clear to auscultation bilaterally Cardio: Rate: regular rate Rhythm: regular rhythm GI: Inspection: non-distended GI Palp: Yes Soft to palpation and No Tenderness to palpation present (GI) Auscultation: normal bowel sounds Skin: Other: pallor Neuro: Speech: normal speech Motor exam (neuro): 5/5 motor strength present throughout Extrem: General: normal to inspection Psych: Mental Status: mental status grossly normal Results Labs 05/11/25 11:54 05/11/25 09:28 Labs: Short CBC 05/11/25 05/11/25 Range/Units 09:28 11:54 WBC 5.4 (4.5-10.0) K/mm3 Hgb 5.5 L* 6.6 L* (14.0-18.0) g/dL Hct 22.9 L 26.6 L (42.0-52.0) % Plt Count 527 H (150-375) k/mm3 BMP 05/11/25 09:28 Sodium 136 L Potassium 4.4 Chloride 102 Carbon Dioxide 24 BUN 11 Creatinine 0.82 Glucose 106 Calcium 8.9 Liver Function 05/11/25 Range/Units 09:28 Total Bilirubin 0.5 (0.2-1.3) mg/dL AST 53 (17-59) U/L ALT 89 H (6-50) U/L Alkaline Phosphatase 89 (38-126) U/L Albumin 4.3 (3.5-5.1) g/dL Urine 05/11/25 Range/Units 10:55 Urine Color Yellow (Yellow) Urine Appearance Cloudy H (Clear) Urine pH 7.0 (5.0-9.0) Ur Specific [place] 1.018 (1.001-1.035) Urine Protein Negative (Negative) mg/dL Urine Glucose (UA) Negative (Negative) mg/dL
[2025-05-11] MEDS: IRON SUCROSE COMPLEX 200 MG, IRON SUCROSE COMPLEX 100 MG in SODIUM CHLORIDE 0.9% IV 250 ML 176.67 MG IVPB (16:20)
[2025-05-11] MEDS: BISACODYL 5 MG TABLET EC 20 MG PO (17:14)
[2025-05-11 17:22] LABS: Hematocrit 28.1 % (42.0-52.0); Hemoglobin 7.6 g/dL (14.0-18.0)
[2025-05-11 18:11] LABS: Ferritin 4.82 ng/mL (17.9-464)
[2025-05-11 18:41] LABS: Vitamin B12 910.0 pg/mL (239-931)
[2025-05-11 23:29] LABS: Hematocrit 27.8 % (42.0-52.0); Hemoglobin 7.6 g/dL (14.0-18.0)
[2025-05-12] VITALS (7 sets, daily range): BP systolic 101–121; BP diastolic 60–73; PULSE 63–91; RESP 14–26; TEMP 36.4–36.9; O2SAT 97–100
[2025-05-12] MEDS: MAGNESIUM CITRATE 300 ML BTL PO (00:12)
[2025-05-12 06:47] LABS: Hematocrit 30.9 % (42.0-52.0); Hemoglobin 8.2 g/dL (14.0-18.0)
[2025-05-12] MEDS: PANTOPRAZOLE SODIUM IV 40 MG VIAL IV PUSH (07:58)
[2025-05-12] MEDS: IRON SUCROSE COMPLEX 200 MG, IRON SUCROSE COMPLEX 100 MG in SODIUM CHLORIDE 0.9% IV 250 ML 176.67 MG IVPB (08:02)
[2025-05-12] MEDS: LACTATED RINGERS 1,000 ML 150 ML IV CONT (08:50)
--- NOTE | 2025-05-12 08:52 | P.PNAN_ITS ---
Anes - Initial Pre Proc Eval Procedure: Operation Date: 05/12/25 15:00 Proposed Procedures p EGD & Diagnostic Colonoscopy - Raghavendra Butler MD Date/Time: 05/12/25 08:52 Surgeon: Gonzalo Pichardo MD Pre Op Diagnosis: low hemoglobin Patient Data Age: 40 Gender: M Height: 1.78 m Weight: 91.3 kg Last Vital Signs Temp 36.6 C 05/12/25 05:27 Pulse 77 05/12/25 05:27 Resp 14 05/12/25 05:27 BP 113/63 05/12/25 05:27 Pulse Ox 100 05/12/25 05:27 O2 Del Method Room Air 05/11/25 20:00 Allergies Allergy/AdvReac Type Severity Reaction Status Date / Time aspirin AdvReac Severe Difficulty Verified 05/12/25 08:49 Breathing Cats Allergy Intermediate Rash Uncoded 05/10/25 08:55 Home Medications ?Medication ?Instructions ?Recorded ?Confirmed ?Type albuterol 90 mcg/actuation aerosol 90 mcg inhalation . Q4HR PRN 05/11/25 05/11/25 History inhaler wheezing/difficulty breathin g multivitamin (Daily Multi-Vitamin 1 tablet PO DAILY 05/11/25 History tablet) Laboratory Tests 05/11/25 05/11/25 05/11/25 09:28 09:52 10:55 WBC 5.4 K/mm3 (4.5-10.0) RBC 3.86 L M/mm3 (4.6-6.20) Hgb 5.5 L* g/dL (14.0-18.0) Hct 22.9 L % (42.0-52.0) MCV 59.3 L fl (80-100) MCH 14.2 L pg (26-34) MCHC 24.0 L g/dl (32-36) RDW 23.2 H % (11.5-14.5) Plt Count 527 H k/mm3 (150-375) MPV 9.4 fl (7.4-10.4) Immature Gran % (Auto) 0.6 H % (0-0.5) Neut % (Auto) 57.6 % (45.5-73.1) Lymph % (Auto) 33.3 % (18.3-44.2) Hettinger % (Auto) 4.8 % (2.6-8.5) Eos % (Auto) 3.0 % (0-4.4) Baso % (Auto) 0.7 % (0.2-1.2) Lymph # (Auto) 1.80 K/mm3 (0.9-3.2) Hettinger # (Auto) 0.3 K/mm3 (0.1-0.6) Eos # (Auto) 0.2 K/mm3 (0-0.3) Baso # (Auto) 0.0 K/mm3 (0.0-0.1) Abs Immat Gran (auto) 0.03 K/mm3 (0.00-0.031) Absolute Neuts (auto) 3.1 K/mm3 (1.3-6.7) Absolute Nucleated RBC 0.000 K/mm3 (0.0-0.012) Band Neutrophils % Not Reportable Nucleated RBC % 0.0 % (0.0-0.2) Platelet Estimate Increased (Adequate) Large Platelets Present Hypochromasia 1+ Anisocytosis 2+ Target Cells 1+ Tear Drop Cells 1+ Ovalocytes 1+ Schistocytes 1+ Haptoglobin PT 14.1 Seconds (11.1-14.7) INR 1.1 APTT 20.1 L Seconds (22.3-36.8) Sodium 136 L mmol/L (137-145) Potassium 4.4 mmol/L (3.4-5.0) Chloride 102 mmol/L (98-107) Carbon Dioxide 24 mmol/L (22-30) Anion Gap 10 mmol/L (4-12) BUN 11 mg/dL (9-20) Creatinine 0.82 mg/dL (0.7-1.3) Estim Creat Clear Calc 111 ml/min Estimated GFR > 60 (59 - ) Glucose 106 mg/dL (65-110) Calcium 8.9 mg/dL (8.4-10.2) Iron 18 L ug/dL (49-181) TIBC 542 H ug/dL (265-497) % Saturation 3 L % (20-50) Ferritin Total Bilirubin 0.5 mg/dL (0.2-1.3) AST 53 U/L (17-59) ALT 89 H U/L (6-50) Alkaline Phosphatase 89 U/L (38-126) Total Protein 8.0 g/dL (6.3-8.2) Albumin 4.3 g/dL (3.5-5.1) Vitamin B12 Folate Urine Color Yellow (Yellow) Urine Appearance Cloudy H (Clear) Urine pH 7.0 (5.0-9.0) Ur Specific [place] 1.018 (1.001-1.035) Urine Protein Negative mg/dL (Negative) Urine Glucose (UA) Negative mg/dL (Negative) Urine Ketones Negative mg/dL (Negative) Ur Blood (Man) Negative (Negative) Urine Nitrate Negative (Negative) Urine Bilirubin Negative (Negative) Urine Urobilinogen 0.2 mg/dL (<2.0) Leukocyte Esterase Rfl Negative JONATHAN/UL (Negative) Urine RBC 0-2 /hpf (0-2) Urine WBC 0-5 /hpf (0-3) Ur Squamous Epith Cells None seen /hpf (Few) Urine Bacteria None seen /hpf Urine Casts 0-2 Influenza A (RT-PCR) Negative (Negative) Influenza B (RT-PCR) Negative (Negative) RSV (RT-PCR) Negative (Negative) SARS-CoV-2 RNA (RT-PCR) Negative (Negative) Blood Type O Positive Antibody Screen Negative KRISTAL, IgG Interpret KRISTAL, Poly Interpret KRISTAL, Complement Interp Crossmatch See Detail 05/11/25 05/11/25 05/11/25 11:54 17:18 23:25 WBC RBC Hgb 6.6 L* g/dL 7.6 L g/dL 7.6 L g/dL (14.0-18.0) (14.0-18.0) (14.0-18.0) Hct 26.6 L % 28.1 L % 27.8 L % (42.0-52.0) (42.0-52.0) (42.0-52.0) MCV MCH MCHC RDW Plt Count MPV Immature Gran % (Auto) Neut % (Auto) Lymph % (Auto) [place] % (Auto) Eos % (Auto) Baso % (Auto) Lymph # (Auto) [place] # (Auto) Eos # (Auto) Baso # (Auto) Abs Immat Gran (auto) Absolute Neuts (auto) Absolute Nucleated RBC Band Neutrophils % Nucleated RBC % Platelet Estimate Large Platelets Hypochromasia Anisocytosis Target Cells Tear Drop Cells Ovalocytes Schistocytes Haptoglobin Pending PT INR APTT Sodium Potassium Chloride Carbon Dioxide Anion Gap BUN Creatinine Estim Creat Clear Calc Estimated GFR Glucose Calcium Iron TIBC % Saturation Ferritin 4.82 L ng/mL (17.9-464) Total Bilirubin AST ALT Alkaline Phosphatase Total Protein Albumin Vitamin B12 910.0 pg/mL (239-931) Folate 19.7 ng/mL (2.76->20) Urine Color Urine Appearance Urine pH Ur Specific [place] Urine Protein Urine Glucose (UA) Urine Ketones Ur Blood (Man) Urine Nitrate Urine Bilirubin Urine Urobilinogen Leukocyte Esterase Rfl Urine RBC Urine WBC Ur Squamous Epith Cells Urine Bacteria Urine Casts Influenza A (RT-PCR) Influenza B (RT-PCR) RSV (RT-PCR) SARS-CoV-2 RNA (RT-PCR) Blood Type Antibody Screen KRISTAL, IgG Interpret Neg KRISTAL, Poly Interpret Negative KRISTAL, Complement Interp Not Performed Crossmatch 05/12/25 05:49 WBC RBC Hgb 8.2 L g/dL (14.0-18.0) Hct 30.9 L % (42.0-52.0) MCV MCH MCHC RDW Plt Count MPV Immature Gran % (Auto) Neut % (Auto) Lymph % (Auto) [place] % (Auto) Eos % (Auto) Baso % (Auto) Lymph # (Auto) [place] # (Auto) Eos # (Auto) Baso # (Auto) Abs Immat Gran (auto) Absolute Neuts (auto) Absolute Nucleated RBC Band Neutrophils % Nucleated RBC % Platelet Estimate Large Platelets Hypochromasia Anisocytosis Target Cells Tear Drop Cells Ovalocytes Schistocytes Haptoglobin PT INR APTT Sodium Potassium Chloride Carbon Dioxide Anion Gap BUN Creatinine Estim Creat Clear Calc Estimated GFR Glucose Calcium Iron TIBC % Saturation Ferritin Total Bilirubin AST ALT Alkaline Phosphatase Total Protein Albumin Vitamin B12 Folate Urine Color Urine Appearance Urine pH Ur Specific [place] Urine Protein Urine Glucose (UA) Urine Ketones Ur Blood (Man) Urine Nitrate Urine Bilirubin Urine Urobilinogen Leukocyte Esterase Rfl Urine RBC Urine WBC Ur Squamous Epith Cells Urine Bacteria Urine Casts Influenza A (RT-PCR) Influenza B (RT-PCR) RSV (RT-PCR) SARS-CoV-2 RNA (RT-PCR) Blood Type Antibody Screen KRISTAL, IgG Interpret KRISTAL, Poly Interpret KRISTAL, Complement Interp Crossmatch Patient hx anesthesia problems: none Family hx anesthesia problems: none Results Review: All pre-operative results and documents have been reviewed as part of the pre- operative evaluation. [facility] Past Medical History Medical History (Updated 05/12/25 @ 08:53 by Man Salas MD) Anemia Pre-syncope Thrombocytosis Social History Social History Smoking status: Never smoker Alcohol intake: never Substance use: never Do You Feel Safe in your Home?: Yes Lack of Transportation: No Lack of Food: Never True Current Housing: I Have Housing Concerned About Future Housing: No Difficulty Paying Gas/Electric Bills: No Difficulty Paying for Meds: No Currently Unemployed: No Education: Decline to Answer Difficulty w/ Childcare or Family Care: No Gender identity (if verbalized by the patient): Male Spiritual care concerns: No Anes - Eval Final PreProcedure Day of Procedure 05/12/25 08:52 Patient weight: overweight Heart: regular rate and rhythm Lungs: clear to auscultation Airway: Mallampati scale class II Neurological: alert and oriented Last oral intake: >/= 8 hours ASA classification: III Emergent: no Anesthetic plan: proceed Anesthesia type and monitoring: general GIVS and standard monitoring Results Review: All pre-operative results and documents have been reviewed as part of the pre- operative evaluation. Informed Consent: The patient's anesthetic plan and its attendant risks and benefits were discussed with the patient/family/POA. Questions were solicited and answers provided to the satisfaction of the patient/family/POA.
--- NOTE | 2025-05-12 09:32 | S_PTH ---
PATIENT: Ny Sauceda LOC: [id number] U#:[id number] AGE/SX: 40/M ROOM: 315 RE05/11/[address]: Anna Weber MD : 1985 BED: 02 DIS: 05/13/2025 SPEC #: [id number] RECD: 05/12/25 11:32 STATUS: WILL RENella #: [id number] BRITTNEY: 05/12/25 09:[address]: Raghavendra Butler DEPT: [facility] Surgical RECD BY: Bernadette Jauregui ENTERED: 05/12/25 11:33 SP TYPE: Surgical OTHR DR: MD Gonzalo Quevedo MD Mafeth A. Lim, DO Tissues: A - Small Bowel Bx B - Gastric Biopsy Procedures: Hematoxylin and Eosin Stain Gross and Microscopic Level 4
--- NOTE | 2025-05-12 09:34 | SUR.OPER ---
EGD: ended 929, COLON: started 933
--- NOTE | 2025-05-12 18:47 | P.CONONC_ITS ---
Assessment and Plan Assessment and plan (1) Iron deficiency anemia: Code(s): D50.9 - Iron deficiency anemia, unspecified Status: Acute Assessment and Plan: This is the pleasant 40-year-old [facility] male who has been in great health came into the hospital with 2 months history of tiredness and fatigue with pale skin discoloration. He denies any melena hematochezia. Denies being a vegetarian. Denies any previous stomach surgeries. Labs showed profound iron deficiency and reactive thrombocytosis secondary to iron deficiency. B12 and bilirubin was normal. Creatinine was also normal. There is no evidence of hemolytic anemia with normal bilirubin. I will check LDH. Colonoscopy came back normal. EGD showed hiatal hernia. Patient could have malabsorption of iron with hiatal hernia but severity of iron deficiency cannot be explained just by the hiatal hernia. I would recommend capsule enteroscopy for completion of GI workup. Patient has already received iron infusion and blood transfusion with improvement in hemoglobin. I have instructed him to take iron 65 mg twice a day with vitamin-C 500 mg daily. I will see him back in my office with repeat blood check. I have answered all the questions to patient's satisfaction. HPI Data of Consult Date/Time: 05/12/25 18:47 Requesting Physician: Gonzalo Pichardo MD Primary Care Provider: Robi Drummond DO Consult Narrative Narrative: Ny Sauceda is a 40 year old male originally from [facility] was been in good health other than history of presyncopal episode and thrombocytosis was sent to the hospital due to pale discoloration of the skin. According the patient he has been feeling tired and fatigued for the last 2 months duration. He denies any melena hematochezia. He denies being a vegetarian. He denies any previous stomach surgeries. On admission his hemoglobin was found to be 5.6 with platelet count of 729001. Iron saturation was 3% with serum iron of 18. Hemoccult stool was negative. Patient had colonoscopy done today that came back normal. EGD done that showed hiatal hernia without any bleeding. Patient received 2 units of packed red blood cell with improvement in hemoglobin now 8.2. Other labs showed normal creatinine of 0.8 elevated ALT of 84 and AST of 54, B12 was normal at 910. Total bilirubin was also normal at 0.5. He denies any other complaints. Review of Systems 2 Review of Systems: Twelve point review of system was reviewed [facility] Past Medical History Medical History (Updated 05/12/25 @ 09:48 by Raghavendra Butler MD) Hiatal hernia Anemia Pre-syncope Thrombocytosis Social History Social History Smoking status: Never smoker Alcohol intake: never Substance use: never Do You Feel Safe in your Home?: Yes Lack of Transportation: No Lack of Food: Never True Current Housing: I Have Housing Concerned About Future Housing: No Difficulty Paying Gas/Electric Bills: No Difficulty Paying for Meds: No Currently Unemployed: No Education: Decline to Answer Difficulty w/ Childcare or Family Care: No Gender identity (if verbalized by the patient): Male Spiritual care concerns: No Meds Home Medications and Allergies Home Medications ?Medication ?Instructions ?Recorded ?Confirmed ?Type albuterol 90 mcg/actuation aerosol 90 mcg inhalation . Q4HR PRN 05/11/25 05/11/25 History inhaler wheezing/difficulty breathin g multivitamin (Daily Multi-Vitamin 1 tablet PO DAILY 05/11/25 History tablet) Allergies Allergy/AdvReac Type Severity Reaction Status Date / Time aspirin AdvReac Severe Difficulty Verified 05/12/25 08:49 Breathing Cats Allergy Intermediate Rash Uncoded 05/10/25 08:55 Vital Signs Vital Signs - 24 hr 05/11/25 20:00 05/11/25 21:24 05/12/25 05:27 Temperature 36.7 C 36.6 C Pulse Rate 85 85 77 Respiratory Rate 16 16 14 Blood Pressure 125/71 113/63 Pulse Oximetry 99 99 100 Oxygen Delivery Room Air 05/12/25 08:51 05/12/25 09:48 05/12/25 09:58 Temperature 36.5 C Pulse Rate 84 91 81 Respiratory Rate 20 26 H 16 Blood Pressure 121/73 101/65 103/63 Pulse Oximetry 99 100 100 Oxygen Delivery Room Air Room Air Room Air 05/12/25 10:08 05/12/25 14:00 Temperature 36.4 C Pulse Rate 77 86 Respiratory Rate 21 H 18 Blood Pressure 105/60 113/62 Pulse Oximetry 100 97 Oxygen Delivery Room Air Exam 2 Narrative: Lungs are clear to auscultation bilaterally Cardiovascular regular rate rhythm no murmurs Abdomen soft nontender nondistended Extremities no edema Results Labs 05/12/25 05:49 05/11/25 09:28 Labs: Short CBC 05/11/25 05/12/25 Range/Units 23:25 05:49 Hgb 7.6 L 8.2 L (14.0-18.0) g/dL Hct 27.8 L 30.9 L (42.0-52.0) %
--- NOTE | 2025-05-13 00:18 | PC.NURSE ---
Patient notified and agreed NPO 05/13 @ 0000 for US procedure to evaluate elevated liver enzymes.
[2025-05-13 06:00] VITALS: BP 108/59; PULSE 69; RESP 14; TEMP 36.9; O2SAT 100
[2025-05-13 14:00] VITALS: BP 106/58; PULSE 86; RESP 18; TEMP 36.5; O2SAT 99
[2025-05-13 14:50] LABS: Hematocrit 29.9 % (42.0-52.0); Hemoglobin 8.1 g/dL (14.0-18.0); Immature Granulocyte Percent A 0.8 % (0-0.5); Lymphocytes Absolute Auto 2.24 K/mm3 (0.9-3.2); Mean Corpuscular HGB Conc 27.1 g/dl (32-36); Mean Corpuscular Hemoglobin 17.4 pg (26-34); Mean Corpuscular Volume 64.2 fl (80-100); Nucleated Red Blood Cells Absolute Auto 0.020 K/mm3 (0.0-0.012); Nucleated Red Blood Cells Perc 0.3 % (0.0-0.2); Platelet Count Result 523 k/mm3 (150-375); Red Blood Count 4.66 M/mm3 (4.6-6.20); White Blood Count 7.3 K/mm3 (4.5-10.0)
[2025-05-13 15:01] LABS: Alanine Aminotransferase 71 U/L (6-50); Albumin Level 4.2 g/dL (3.5-5.1); Alkaline Phosphatase 81 U/L (38-126); Anion Gap 11 mmol/L (4-12); Aspartate Amino Transferase 47 U/L (17-59); Bilirubin,Total 0.5 mg/dL (0.2-1.3); Blood Urea Nitrogen 13 mg/dL (9-20); Calcium 8.5 mg/dL (8.4-10.2); Carbon Dioxide 23 mmol/L (22-30); Chloride 103 mmol/L (98-107); Estimated CRCL calculation 90 ml/min; Estimated Glomerular Filt Rate > 60; Glucose 115 mg/dL (65-110); Potassium 4.0 mmol/L (3.4-5.0); Sodium 137 mmol/L (137-145); Total Protein 7.9 g/dL (6.3-8.2)
[2025-05-13 15:18] LABS: Hypochromasia 2+; Microcytosis 1+ (NORMAL); Polychromasia Occasional; Schistocytes None Seen; Target Cells 1+
--- NOTE | 2025-05-13 16:53 | P.DS_ITS ---
DS: Admitting Diagnosis Discharge Date 05/13/2025 Admitting Diagnosis anemia DS: Discharge Diagnosis Discharge Diagnosis (1) Anemia: Code(s): D64.9 - Anemia, unspecified Status: Acute Assessment and Plan: Hemoglobin on admission 5.6 GI consulted and Hematology consulted NPO midnight, okay for clear liquids now 1 unit of RBCs transfused in the emergency room, repeat hemoglobin 6.6 Second unit of RBCs ordered Had H&H q.6 Transfuse for hemoglobin less than 7 No signs of acute bleeding Ferritin, haptoglobin, B12 and folic acid pending No signs of acute bleeding Hemoglobin has responded appropriately to transfusions Patient will follow up with hematology as an outpatient. Patient will see his PCP in 1 week for a CBC (2) Yellow skin: Code(s): R17 - Unspecified jaundice Status: Acute Assessment and Plan: With severe anemia and jaundice Hematology consulted Anemia workup pending Ferritin, direct Marely, haptoglobin, B12 and folic acid pending (3) Iron deficiency anemia: Code(s): D50.9 - Iron deficiency anemia, unspecified Status: Acute Assessment and Plan: Iron 18, TIBC 542, saturation 3% Total iron deficiency 2337 mg 300 mg of IV iron done continue PO iron supplement (4) Elevated liver enzymes: Code(s): R74.8 - Abnormal levels of other serum enzymes Status: Acute Assessment and Plan: monitor (5) Fatigue: Code(s): R53.83 - Other fatigue Status: Acute Assessment and Plan: Likely due to acute anemia DS: Summary Hospital Course Reason for hospitalization: anemia Hospital Course: Patient was admitted due to anemia. Patient had labs drawn by his PCP that showed a hemoglobin of 5.6 and he was sent to the ER. Patient was transfused 2 units of PRBC's. Patient denies any signs bleeding. GI and Hematology were consulted. Patient had an EGD which showed a moderate sized hiatal hernia. Patient was given IV iron and will transition to PO iron on discharge. Patient;s hemoglobin improved post transfusion and remained stable. Hematology recommended for patient to follow up in their clinic after discharge. Gi recommended for patient to have capsule study done to evaluate the small bowel. Patient was discharged home. Patient will follow up with his PCP 1 week after discharge for a repeat CBC. Time Spent with Patient Time attestation: Total time spent providing and/or coordinating discharge services:35 Minutes Exam Narrative: General: well appearing, appears stated age. HEENT: normocephalic, atraumatic. Mucous membranes moist. EOMI, PERRLA, no conjunctival injection. Neck supple without JVD, lymphadenopathy, or bruit. Respiratory: clear to ascultation bilaterally. No rales/rhonic/wheezes. Cardiovascular: Regular rate and rhythm, normal S1-S2 upon ascultation. No murmurs, rubs, or clicks. PMI is nondisplaced, capillary refill less than 3 second. Abdomen: Soft, round, no pulsatile masses, nondistended and nontender. No rebound, no guarding. No CVA tenderness, no hepatosplenomegaly. Bowel sounds pr esent to all four quadrants. No high pitch or tinkling sounds, resonant to percussion. Extremities: No cyanosis, clubbing, or edema present. Pulses are palpable 2/2. Active ROM to all four extremities. Neuro: Alert and orientated x 4. PERRLA. Cranial nerves 2-12 intact without focal deficit. Skin: Warm, dry, and intact, without rash, erythema, or lesion. Psych: pleasant, cooperative, normal speech, normal affect, no hallucinations, no dysarthia DS: Data Data Completed and Pending Completed studies during hospitalization: Pending at discharge 05/12/25 09:32 Surgical [PTH] Routine Labs on day of discharge: Labs from last 24 hours 05/13/25 05/11/25 14:44 17:18 WBC 7.3 RBC 4.66 Hgb 8.1 L Hct 29.9 L MCV 64.2 L D MCH 17.4 L D MCHC 27.1 L RDW 29.6 H Plt Count 523 H MPV 9.0 Immature Gran % (Auto) 0.8 H Neut % (Auto) 57.3 Lymph % (Auto) 30.6 Hudson % (Auto) 8.5 Eos % (Auto) 1.6 Baso % (Auto) 1.2 Lymph # (Auto) 2.24 Hudson # (Auto) 0.6 Eos # (Auto) 0.1 Baso # (Auto) 0.1 Abs Immat Gran (auto) 0.06 H Absolute Neuts (auto) 4.2 Absolute Nucleated RBC 0.020 H Band Neutrophils % Not Reportable Nucleated RBC % 0.3 H Platelet Estimate Increased Polychromasia Occasional Hypochromasia 2+ Microcytosis 1+ Target Cells 1+ Schistocytes None seen Haptoglobin 146 Sodium 137 Potassium 4.0 Chloride 103 Carbon Dioxide 23 Anion Gap 11 BUN 13 Creatinine 1.00 Estim Creat Clear Calc 90 Estimated GFR > 60 Glucose 115 H Calcium 8.5 Total Bilirubin 0.5 AST 47 ALT 71 H Alkaline Phosphatase 81 Total Protein 7.9 Albumin 4.2 Discharge Plan Discharge Attending physician on discharge: Anna Weber Consulting providers: Raghavendra Butler; Jonas Barnes; Lori Judd; Haritha Quintero; Gregory Oliva; Carlos Pearson Discharging Clinician: Haritha Quintero Patient Disposition: Home Activity: as tolerated Diet: as tolerated Discharge Instructions: Please follow up with Dr. Carlin in six weeks. Please follow up with your primary care doctor within one week. If you are unable to be seen within one week, call them to obtain blood work regarding your hemoglobin. Please return to the ER if you have any worrisome symptoms like dizziness, shortness of breath, fever greater than 100.5, syncopal episodes, or increased weakness. Thank you for [facility] for your healthcare needs. Patient Instructions: Antibiotic Form Patient Language: Georgian Stand Alone Forms: General Discharge Information Follow-up/Referrals: Carlos Pearson MD [Physician, Hematology] Referral Note: call to schedule a follow up appointment in 2 weeks Robi Drummond DO [Primary Care Provider, Family Practice] Referral Note: call for an appt to be seen 1 week after discharge. Ask for a lab to be done to check your blood counts (CBC). Raghavendra Butler MD [Physician, Gastroenterology] Referral Note: call to schedule appointment for capsule endoscopy to be completed if you do not hear from the office in 1 week Discharge Medications: New ascorbic acid (vitamin C) [Vitamin C] 500 mg Tablet 500 mg PO DAILY Qty: 30 0RF ferrous sulfate 325 mg (65 mg iron) Tablet,Delayed Release (Dr/Ec) 325 mg PO BID Qty: 60 0RF Continued multivitamin [Daily Multi-Vitamin] Tablet 1 tablet PO DAILY albuterol 90 mcg/actuation aerosol 90 mcg inhalation .Q4HR PRN (Reason: wheezing/difficulty breathing) omeprazole 40 mg capsule,delayed release(DR/EC) 40 mg PO DAILY Qty: 30 2RF Discontinued amoxicillin 500 mg capsule 1,000 mg PO Q12H 14 Days Qty: 56 0RF clarithromycin 500 mg tablet 500 mg PO Q12H 14 Days Qty: 28 0RF Date of admission: 05/11/25 11:26 Primary Care Provider: Robi Drummond Admitting Provider: Kelvin Pichardo Attending physician on admission: Anna Weber Condition: Stable Quality VTE Prophylaxis VTE prophylaxis: mechanical ordered
[2025-05-13] MEDS: FERROUS SULFATE 325 MG TABLET PO (17:00)
== END 2025-05-13 18:00 | disposition home or self-care (01) ==
LOC: ANHED 11:35 → ANH3MEDSUR 15:27
PROVIDERS: Emergency Medicine; Internal Medicine Gastroenterology; Nurse Practitioner Adult Health; Nurse Practitioner Gerontology; Admitting Provider Internal Medicine; Emergency Provider Registered Nurse; PCP Family Medicine; Visit Provider General Practice
PROC: 0DJ08ZZ Inspection of Upper Intestinal Tract, Via Natural or Artificial Opening Endoscopic (ICD-10-PCS; CPT 45378; principal; 2025-05-12 15:00)
DX: D50.9 Iron deficiency anemia, unspecified (principal); D75.839 Thrombocytosis, unspecified; K44.9 Diaphragmatic hernia without obstruction or gangrene; K29.50 Unspecified chronic gastritis without bleeding; B96.81 Helicobacter pylori [H. pylori] as the cause of diseases classified elsewhere; R17 Unspecified jaundice; R74.8 Abnormal levels of other serum enzymes; R53.83 Other fatigue; Z20.822 Contact with and (suspected) exposure to COVID-19; J45.909 Unspecified asthma, uncomplicated; Z79.51 Long term (current) use of inhaled steroids; Z80.0 Family history of malignant neoplasm of digestive organs
CPT/HCPCS: 43239; 45378; 36415; 36430; 76705; 80053; 81001; 82607; 82728; 82746; 83010; 83540; 83550; 85014; 85018; 85025; 85610; 85730; 86850; 86880; 86900; 86901; 86923; 87637; 88305; 96374; 96375; 96376; 99285; A9270; G0378; J1756; J2003; J2470; J2704; J7050; J7120; P9016

== ENCOUNTER 2025-06-10 05:16 | Outpatient (CLI) | payer BC, SELFPAY ==
--- NOTE | 2025-05-31 14:08 | SUR.PREOP ---
Spoke with patient in regards to his [facility] capsule endoscopy. Instructions to be emailed to the patient. Patient to call us if he has any questions.
[2025-06-10] MEDS: SIMETHICONE ORAL SUSPENSION 20 MG/0.3 ML 30 ML BOTTLE 1.8 ML PO (06:15)
--- NOTE | 2025-06-10 06:27 | SUR.OPER ---
Patient brought to GI Lab. Instructions for patient undergoing Capsule Endoscopy reviewed with patient. Consent form signed. Sensor array applied to patient's abdomen and connected to recorded. Patient swallowed capsule with 12 ozs of water infused with Simethicone. Patient instructed they may have clear liquids at 0830 this AM and eat or drink at 1030 this AM. Patient instructed to return to GI Lab at 1500 this afternoon for removal of recording device and to call [phone] or to return to the hospital if any nausea and vomiting or abdominal pain is experienced.
--- NOTE | 2025-06-10 15:38 | SUR.PREOP ---
Patient returned to the GI Lab at 1530 for recorder box removal. Patient voiced no complaints. States they have understanding of instructions. Patient left ambulatory.
== END 2025-06-10 05:17 | disposition home or self-care (01) ==
PROVIDERS: PCP Family Medicine; Referring Provider Internal Medicine Gastroenterology; Visit Provider Internal Medicine Gastroenterology
PROC: (CPT 91110; principal; 2025-06-10 07:00)
DX: D50.9 Iron deficiency anemia, unspecified (principal)
CPT/HCPCS: 91110